=== PATIENT | female | born 1965 | race Caucasian/White ===

== ENCOUNTER 2017-03-19 12:12 | Outpatient (CLI) | payer OTHER | END 2017-03-19 12:13 | disposition home or self-care (01) | LOC: DTY/OP 12:12 | PROVIDERS: ATTEND Family Medicine | DX: E78.00 Pure hypercholesterolemia, unspecified (principal) | CPT/HCPCS: 97802 ==

== ENCOUNTER 2019-06-03 16:09 | Outpatient (CLI) | payer OTHER ==
--- NOTE | 2019-06-03 16:46 | MMO ---
Bilateral MAMMO Bilat Screen [facility]. CLINICAL HISTORY: Patient is 53 years old and is seen for screening. The patient has no family history of breast cancer. The patient has no personal history of cancer. VIEWS: The views performed were: bilateral craniocaudal with tomosynthesis and bilateral mediolateral oblique with tomosynthesis. FILMS COMPARED: The present examination has been compared to prior imaging studies performed at [facility] on 07/25/2010, 04/11/2013, 05/16/2014 and 03/18/2016. This study has been interpreted with the assistance of computer-aided detection. MAMMOGRAM FINDINGS: There are scattered fibroglandular densities. There are no suspicious masses, suspicious calcifications, or new areas of architectural distortion. IMPRESSION: THERE IS NO MAMMOGRAPHIC EVIDENCE OF MALIGNANCY. A ROUTINE FOLLOW-UP MAMMOGRAM IN 1 YEAR IS RECOMMENDED. THE RESULTS OF THIS EXAM WERE SENT TO THE PATIENT. ACR BI-RADS Category 1 - Negative MAMMOGRAPHY NOTE: 1. A negative mammogram report should not delay a biopsy if a dominant of clinically suspicious mass is present. 2. Approximately 10% to 15% of breast cancers are not detected by mammography. 3. Adenosis and dense breasts may obscure an underlying neoplasm. Reported by: MADALYN URIBE MD Electonically Signed: [id number]
== END 2019-06-03 16:10 | disposition home or self-care (01) ==
LOC: BICMAMMO 16:09
PROVIDERS: ATTEND Physician Assistant
DX: Z12.31 Encounter for screening mammogram for malignant neoplasm of breast (principal)
CPT/HCPCS: 77063; 77067

== ENCOUNTER 2020-10-22 15:38 | Outpatient (CLI) | payer OTHER | END 2020-10-22 15:39 | disposition home or self-care (01) | LOC: BICMAMMO 15:38 | PROVIDERS: ATTEND Physician Assistant | DX: Z12.31 Encounter for screening mammogram for malignant neoplasm of breast (principal) | CPT/HCPCS: 77063; 77067 ==